=== PATIENT | male | born 1965 | race American Indian/Alaskan Native ===

== ENCOUNTER 2016-07-17 04:20 | Emergency (ER) | payer MEDICAID ==
[2016-07-17 04:55] VITALS: BP 143/89
[2016-07-17 05:10] LABS: Basophils % (Auto) 0.6 % (0.0-1.8); Eosinophils % (Auto) 1.5 % (0.0-4.3); Hemoglobin 16.5 gm/dl (11.8-15.2); Mean Corpuscular HGB Conc 34 % (32-34); Mean Corpuscular Hemoglobin 32 pg (28-32); Mean Corpuscular Volume 92 fl (84-94); Red Cell Distribution Width 13.1 % (13.2-15.2); White Blood Count 7.5 K/mm3 (4.5-11.0)
[2016-07-17 05:16] LABS: C-Reactive Protein 0.1 mg/dL (0.00-1.30)
[2016-07-17 05:17] LABS: Alanine Aminotransferase 15 units/L (7-56); Albumin 4.3 g/dL (3.9-5); Albumin/Globulin Ratio 1.1 %; Alkaline Phosphatase 92 units/L (35-129); Anion Gap 19 mmol/L; BUN/Creatinine Ratio 18.57; Blood Urea Nitrogen 13 mg/dL (9-20); Calcium 9.4 mg/dL (8.4-10.2); Carbon Dioxide 23 mmol/L (22-30); Chloride 99.9 mmol/L (98-107); Glucose 114 mg/dL (75-100); Lipase 25 units/L (13-60); Potassium 3.7 mmol/L (3.6-5.0); Sodium 138 mmol/L (137-145); Total Protein 8.2 g/dL (6.3-8.2)
--- NOTE | 2016-07-17 05:40 | XRay Report ---
FINAL REPORT EXAM: XR SPINE LUMBOSACRAL 2-3V HISTORY: Midline pain to palpation TECHNIQUE: Two views of the lumbar spine PRIORS: None. FINDINGS: There are 6 lumbar type, non rib-bearing vertebra. The the 6th appears to be a transitional vertebra, partially sacralized on the left side. For the purpose of this report vertebrae will be designated L1 through L6. There is a mild L2 compression deformity of unknown age. There are [id number] compression deformities of L 5 and L6 which are also of unknown age. The opposing endplates at L5-6 are poorly visualized. It is unclear whether this reflects some bony destruction or vertebral fusion or artifact. Grossly, there is vertebral height loss of both L5 and L6. Patient is status post surgical fusion with hardware extending from L4-S1. IMPRESSION: Transitional vertebra at the lumbosacral junction. For the purpose of this report vertebrae are designated L1 through L6. Mild L1 compression deformity of unknown age. Surgical posterior fusion from L4-S1. Poor visualization of opposing endplates at L5-6 with loss of both L5 and L6 vertebral height. I am uncertain whether the lack of endplate visualization represents vertebral fusion or bony destruction. Unfortunately, bone detail is not well visualized in this area. Recommend CT for further evaluation.
[2016-07-17 06:08] LABS: Platelet Count 162 K/mm3 (140-440)
[2016-07-17 06:42] LABS: Urine Drugs of Abuse Note Disclamer
[2016-07-17 06:59] LABS: Bacteria,Urine 1+ /HPF (Negative); Bilirubin,Urine NEG (Negative); Blood,Urine SM (Negative); Ketones,Urine TR mg/dL (Negative); Leukocyte Esterase,Urine NEG (Negative); Mucus,Urine 2+ /HPF; Nitrite,Urine NEG (Negative)
[2016-07-17] MEDS: NORCO 7.5/325 PO ONE (07:47)
--- NOTE | 2016-07-17 07:56 | Emergency Department Report ---
ED General Adult HPI - General Chief complaint: Back Pain/Injury Stated complaint: BACK PAIN Time Seen by Provider: 07/17/16 07:14 Source: patient Mode of arrival: Ambulatory Limitations: No Limitations - History of Present Illness -: Gradual, year(s) (no pcp) Location: back Radiation: non-radiation Severity scale (0 -10): 9 Consistency: constant Improves with: none Worsens with: none Associated Symptoms: denies other symptoms Treatments Prior to Arrival: NSAID - Related Data Previous Rx's Medication Instructions Recorded Last Taken Type traMADol [Ultram] 50 mg PO Q6HR PRN #20 tablet 07/17/16 Unknown Rx Allergies Allergy/AdvReac Type Severity Reaction Status Date / Time No Known Allergies Allergy Verified 07/17/16 04:31 ED Review of Systems ROS: Stated complaint: BACK PAIN Other details as noted in HPI Comment: All other systems reviewed and negative Constitutional: other (debility) Eyes: as per HPI ENT: as per HPI Respiratory: no symptoms reported Cardiovascular: as per HPI Endocrine: no symptoms reported Gastrointestinal: as per HPI Genitourinary: as per HPI Musculoskeletal: as per HPI Skin: as per HPI Neurological: as per HPI Psychiatric: as per HPI Hematological/Lymphatic: as per HPI ED Past Medical Hx - Past Medical History Previous Medical History?: Yes - Surgical History Past Surgical History?: Yes Additional Surgical History: Midline chest scar - 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 Left Foot - Social History Smoking Status: Never Smoker Substance Use Type: Alcohol, Marijuana - Medications Home Medications: Home Medications Medication Instructions Recorded Confirmed Last Taken Type traMADol [Ultram] 50 mg PO Q6HR PRN #20 tablet 07/17/16 Unknown Rx ED Physical Exam - General Limitations: No Limitations, Physical Limitation (r geovanna, r toe amp) General appearance: alert, in no apparent distress - Head Head exam: Present: atraumatic - Eye Eye exam: Present: normal appearance - ENT ENT exam: Present: mucous membranes dry, mucous membranes moist - Neck Neck exam: Present: normal inspection - Respiratory Respiratory exam: Present: normal lung sounds bilaterally - Cardiovascular Cardiovascular Exam: Present: regular rate, normal rhythm - GI/Abdominal GI/Abdominal exam: Present: soft - Rectal Rectal exam: Present: deferred - Extremities Exam Extremities exam: Present: other - Back Exam Back exam: Present: other (chronic back pain in debilitated male). Absent: CVA tenderness (R), CVA tenderness (L), muscle spasm, paraspinal tenderness - Neurological Exam Neurological exam: Present: alert, altered, oriented X3, other (slow to respond ; previous chi, here w gf states this is his normal health) - Psychiatric Psychiatric exam: Present: normal affect, normal mood - Skin Skin exam: Present: warm, dry, intact, other (stump evaluated and s/s infection) ED Course Vital Signs 07/17/16 07/17/16 04:25 07:47 Temperature 98.0 F Pulse Rate 72 Respiratory 18 20 Rate Blood Pressure 143/89 [Right] O2 Sat by Pulse 100 Oximetry ED Medical Decision Making - Lab Data Result diagrams: 07/17/16 04:40 07/17/16 04:40 - Radiology Data Radiology results: image reviewed - Medical Decision Making debilitated but nourished male vss nad here w pain girlfriend at bedside. back pain for years previous surg details he can not give. done in [place] here in [place] 2 y no pcp dm on no meds labs noted cr n bs 113 lft n uds n xray results noted no new trauma or such pt states his back just messed up no incontinence no fever no weight loss no neuro defect at baseline per girlfriend no dysuria given lortab for pain here for referrals to [facility] and appreciative. Critical care attestation.: If time is entered above; I have spent that time in minutes in the direct care of this critically ill patient, excluding procedure time. ED Disposition Clinical Impression: Chronic back pain Disposition: DISCHARGED TO HOME OR SELFCARE Is pt being admited?: No Does the pt Need Aspirin: No Condition: Stable Instructions: Chronic Back Pain (ED) Additional Instructions: heat compresses hydrate well follow up as we discussed motrin over the counter for pain, 800 mg po every 8 hours for pain med given today for severe pain keep stump clean and dry diabetic diet as instructed Prescriptions: traMADol [Ultram] 50 mg PO Q6HR PRN #20 tablet PRN Reason: Pain Referrals: PRIMARY CARE, [Primary Care Provider] - 3-5 Days CHERELLE WILSON MD [Staff Physician] - 3-5 Days Time of Disposition: 07:57
== END 2016-07-17 08:36 | disposition home or self-care (01) ==
LOC: ED 04:20
DX: M54.9 Dorsalgia, unspecified (principal); G89.29 Other chronic pain; F12.10 Cannabis abuse, uncomplicated
CPT/HCPCS: 36415; 72100; 80053; 80307; 81001; 82550; 83690; 85025; 86140; 99284; G0480; 80320